=== PATIENT | female | born 1975 | race Caucasian/White ===

== ENCOUNTER 2016-07-09 20:50 | Emergency (ER) | payer BC ==
--- NOTE | 2016-07-09 20:55 | PDOC ---
History of Present Illness - History of Present Illness Initial Comments: 07/09/16 21:10 The patient is a 41 year old female with no significant past medical history who presents to the Emergency Department with right ankle pain for about 2 hours. Patient states she was walking and rolled her ankle. She reports pain and swelling at the site. She denies any other complaints. PAST MEDICAL HISTORY: no significant history PAST SURGICAL HISTORY: no significant history FAMILY HISTORY: no pertinent history SOCIAL HISTORY: Pt lives with family and is employed. MEDICATIONS: reviewed ALLERGIES: As per nursing notes Review of Systems: General: No fevers or chills, no weakness, no weight loss HEENT: No change in vision. No sore throat,. No ear pain CardioVascular: No chest pain or shortness of breath Respiratory: No cough, or wheezing. Gastrointestinal: no nausea, vomiting, diarrhea or constipation, No rectal bleeding Genitourinary: No dysuria, hematuria, or frequency Musculoskeletal: + right ankle injury. Neurologic: No headache, vertigo, dizziness or loss of consciousness Psychiatric: No depression Skin: No rashes or easy bruising Endocrine: No increased thirst or abnormal weight change Allergic: No skin or latex allergy All other systems reviewed and normal BASIC EXAM: GENERAL: The patient is awake, alert, and fully oriented, in no acute distress. HEAD: Normal with no signs of trauma. EYES: Pupils equal, round and reactive to light, extraocular movements intact, sclera anicteric, conjunctiva clear. EXTREMITIES: Tenderness on palpation to lateral malleolus with swelling over area. No tenderness on palpation at the base of the fifth metatarsal. Neurovascular distal intact.Normal range of motion. NEUROLOGICAL: Normal speech, normal gait. PSYCH: Normal mood, normal affect. SKIN: Warm, Dry, normal turgor, no rashes or lesions noted. <Ana M Feliciano - Last Filed: 07/09/16 21:09> - General History Source: Patient Exam Limitations: No Limitations - History of Present Illness Initial Comments: 07/09/16 21:57 A portion of this note was documented by scribe services under my direction. I have reviewed the details of the note, within reason, and agree with the documentation. The case summary and management plan written by me. Right ankle x-ray fracture lateral malleolus nondisplaced mortise appears to be intact. Procedure: OCL posterior splint applied to right ankle neurovascular post splint application intact Assessment and plan: This is a 41-year-old female who twisted her right ankle. Patient denied any other injuries. Patient has a chip fracture of the lateral malleolus that is nondisplaced. Patient ankle was splinted she was given crutches and orthopedic referral. 07/09/16 22:01 <Joelle Alvarez I - Last Filed: 07/09/16 22:01> - General Chief Complaint: Injury Stated Complaint: INJURY TO RIGHT ANKLE Time Seen by Provider: 07/09/16 20:53 Past History <Ana M Feliciano - Last Filed: 07/09/16 21:09> <Joelle Alvarez I - Last Filed: 07/09/16 22:01> - Past Medical History Allergies/Adverse Reactions: Allergies Allergy/AdvReac Type Severity Reaction Status Date / Time pineapple Allergy Verified 07/09/16 20:51 shellfish derived Allergy Verified 07/09/16 20:51 Home Medications: Ambulatory Orders NK [No Known Home Medication] 07/09/16 *Physical Exam - Vital Signs Last Vital Signs Temp Pulse Resp BP Pulse Ox 98.2 F 98 H 16 133/101 98 07/09/16 20:50 07/09/16 20:50 07/09/16 20:50 07/09/16 20:50 07/09/16 20:50 <AnaM Feliciano - Last Filed: 07/09/16 21:09> *DC/Admit/Observation/Transfer - Attestations Scribe Attestion: 07/09/16 21:10 Documentation prepared by Ana M Feliciano, acting as medical data entry clerk for Joelle Alvarez MD. <Ana M Feliciano - Last Filed: 07/09/16 21:09> - Discharge Dispostion Admit: No <Joelle Alvarez I - Last Filed: 07/09/16 22:01> Diagnosis at time of Disposition: Closed fracture of right ankle Qualifiers: Encounter type: initial encounter Qualified Code(s): S82.891A - Other fracture of right lower leg, initial encounter for closed fracture - Discharge Dispostion Disposition: HOME Condition at time of disposition: Stable - Patient Instructions Printed Discharge Instructions: DI for Ankle Fracture Additional Instructions: Tylenol or Motrin as needed for pain. No weightbearing use crutches for walking Leave splint in place until you see an orthopedist Follow-up with an orthopedist if you need an orthopedist call Dr. Whitney at [phone] in the morning for an appointment. Return to the emergency department immediately with ANY new, persistent or worsening symptoms. Continue any medications as previously prescribed by your physician. You should follow up with your primary doctor as soon as possible regarding today's emergency department visit. . Please make sure your doctor reviews the results of your emergency evaluation. Thank you for coming to the Emergency Department today for your care. It was a pleasure to see you today. Please note that your evaluation is INCOMPLETE until you follow-up with your doctor.
[2016-07-09] MEDS ORDERED: IBUPROFEN 600 MG TABLET (FP) PO ONE (21:01)
[2016-07-09 21:07] VITALS: BP 133/101; PULSE 98; TEMP 98.2; BMI 21.9
== END 2016-07-09 22:15 | disposition home or self-care (01) ==
LOC: FER 20:50
PROC: 2W3SX1Z Immobilization of Right Foot using Splint (ICD-10-PCS; principal; 2016-07-09)
DX: S82.891A Other fracture of right lower leg, initial encounter for closed fracture (principal); X58.XXXA Exposure to other specified factors, initial encounter; Y93.9 Activity, unspecified; Y92.9 Unspecified place or not applicable
CPT/HCPCS: 73610-TC-RT; 84703; 99281-25

== ENCOUNTER 2018-10-31 11:35 | Emergency (ER) | payer BC ==
[2018-10-31 12:03] VITALS: BP 128/79; PULSE 72; TEMP 98.8; BMI 21.6
--- NOTE | 2018-10-31 12:26 | PDOC ---
Attending Attestation - Resident Resident Name: Aliyah Correa - ED Attending Attestation I have performed the following: I have examined & evaluated the patient, The case was reviewed & discussed with the resident, I agree w/resident's findings & plan, Exceptions are as noted - HPI HPI: 10/31/18 13:37 Twisted right ankle. Pain and swelling laterally. Prior fracture 2 years ago. No hardware - Physicial Exam PE: 10/31/18 13:37 Right ankle: Mild swelling of the anterolateral ligaments. Mild point tenderness lateral malleolus. No fifth metatarsal tenderness. Pulses full. No distal sensory deficits. No other injuries - Medical Decision Making 10/31/18 13:38 Assessment: Ankle sprain, rule out fracture Plan: X-ray shows an avulsion fracture of the tip of the distal fibula, and it is uncertain whether this is new or old, since she has a history of a prior ankle fracture on this side. This is likely her old fracture, and I suspect of present injury is primarily a sprain. However, this was discussed with the patient and her mother. They were instructed to follow-up with their orthopedist Dr. Patel and copies of the x-ray were given. It was emphasized that this could be a new fracture in the area of her old injury, but it is much more likely that this is her old fracture, since the prior x-ray from 2017 shows similar injury. However, it is impossible to tell from the present x-ray whether the new fracture has been sustained. They agreed to follow-up with their orthopedist. An air cast was placed and the patient was adequately ambulatory at discharge to follow-up as directed
--- NOTE | 2018-10-31 12:31 | PDOC ---
History of Present Illness - General Chief Complaint: Injury Stated Complaint: RIGHT ANKLE INJURY Time Seen by Provider: 10/31/18 11:39 History Source: Patient Exam Limitations: No Limitations - History of Present Illness Initial Comments: 43 yo F PMH R ankle fracture 2 years ago, R knee surgery in past with screw in place, presenting with R ankle pain. Twisted her ankle at [facility] around 1100, states that she felt a pop and an audible sound. Has been able to walk on it, albeit with pain. Has been icing since the injury. Has no further complaints. LMP October 18-, denies . 10/31/18 12:27 Past History - Past Medical History Allergies/Adverse Reactions: Allergies Allergy/AdvReac Type Severity Reaction Status Date / Time pineapple Allergy Verified 10/31/18 11:41 shellfish derived Allergy Verified 10/31/18 11:41 Home Medications: Ambulatory Orders NK [No Known Home Medication] 10/31/18 COPD: No Other medical history: migraine headaches - Suicide/Smoking/Psychosocial Hx Smoking History: Current every day smoker Have you smoked in the past 12 months: Yes Number of Cigarettes Smoked Daily: 6 Information on smoking cessation initiated: Yes 'Breaking Loose' booklet given: 07/09/16 Hx Alcohol Use: No Drug/Substance Use Hx: No Substance Use Type: None Review of Systems - Review of Systems Able to Perform ROS?: Yes Constitutional: No: Chills, Weakness HEENTM: No: Double Vision, Hearing Loss, Difficulty Swallowing Respiratory: No: Cough, Shortness of Breath Cardiac (ROS): No: Chest Pain ABD/GI: No: Constipated, Diarrhea, Nausea, Vomiting *Physical Exam - Vital Signs Last Vital Signs Temp Pulse Resp BP Pulse Ox 98.8 F 72 18 128/79 98 10/31/18 11:35 10/31/18 11:35 10/31/18 11:35 10/31/18 11:35 10/31/18 11:35 - Physical Exam Comments: Gen: appropriately dressed, nourished, NAD CV: regular rate and rhythm Pulm: CTA b/l Abdomen: soft, non-distended, non-tender Extr: swelling around R lateral malleolus, tender to palpation along posterior border. No fifth metatarsal tenderness 10/31/18 12:29 ED Treatment Course - RADIOLOGY Radiology Studies Ordered: Category Date Time Status ANKLE-RIGHT [RAD] Stat Radiology 10/31/18 12:26 Ordered Medical Decision Making - Medical Decision Making Cannot rule out ankle fracture by Robinson criteria. Will get ankle X-ray 10/31/18 12:31 Ankle X rays reviewed. Evidence of old avulsions or accessory ossicles by the inferior tips of the medial and lateral malleolus. Minimal lateral swelling, no acute fracture. 10/31/18 13:20 *DC/Admit/Observation/Transfer Diagnosis at time of Disposition: Ankle pain, right - Discharge Dispostion Disposition: HOME Condition at time of disposition: Improved Decision to Admit order: No - Referrals - Patient Instructions Printed Discharge Instructions: DI for Ankle Sprain Additional Instructions: You were seen with right ankle pain. X-rays show that this is likely to be an ankle sprain. Please continue to use RICE therapy (rest, ice, compression, and elevation). See your orthopedist Dr. Patel within the next few days. Take an NSAID as needed for pain. - Post Discharge Activity Forms/Work/School Notes: Back to Work
== END 2018-10-31 13:57 | disposition home or self-care (01) ==
LOC: FER 11:35
DX: M25.571 Pain in right ankle and joints of right foot (principal); F17.210 Nicotine dependence, cigarettes, uncomplicated; X58.XXXA Exposure to other specified factors, initial encounter; Y93.75 Activity, martial arts; Y92.89 Other specified places as the place of occurrence of the external cause
CPT/HCPCS: 73610-TC-RT-FY; 99282-25

== ENCOUNTER 2018-12-19 23:09 | Inpatient (IN) | payer BC ==
[2018-12-20] MEDS ORDERED: SODIUM CHLORIDE 1,000 ML IV STA (00:09)
[2018-12-20] MEDS ORDERED: ACETAMINOPHEN 1000 MG/100 ML VIAL (NON FORMULARY) IVPB ONE (00:09)
[2018-12-20] MEDS ORDERED: ACETAMINOPHEN INJECTION 100 ML IVPB ONE ×2 (00:14→13:14)
[2018-12-20 00:21] LABS: BASO % 1.1 % (0-2.0); EOS % 0.2 % (0-4.5); HEMATOCRIT 44.2 % (32.4-45.2); HEMOGLOBIN 14.6 GM/dL (10.7-15.3); LYMPH % 13.4 % (8-40); MCH 30.1 pg (25.7-33.7); MCHC 33.1 g/dl (32.0-36.0); MEAN CELL VOLUME 91.1 fl (80-96); MEAN PLT VOLUME 8.2 fl (7.5-11.1); MONO % 9.8 % (3.8-10.2); NEUT % 75.5 % (42.8-82.8); PLATELET COUNT 392 K/MM3 (134-434); RBC 4.86 M/mm3 (3.60-5.2); WHITE BLOOD COUNT 15.7 K/mm3 (4.0-10.0)
--- NOTE | 2018-12-20 00:25 | PDOC ---
History of Present Illness - General Chief Complaint: Pain Stated Complaint: ABD PAIN Time Seen by Provider: 12/19/18 23:58 History Source: Patient Exam Limitations: No Limitations - History of Present Illness Initial Comments: 12/20/18 00:35 43 yo F with a hx of nephrolithiasis and right ankle fracture presents to the emergency department with right flank pain that began this morning. Per the patient, she states the pain is similar in quality to her previous episode 5 years ago. The pain was sudden onset, radiating to the right lower groin, 10/10 in severity, with partial relief with a muscle relaxant. Denies the following: dysuria, fevers, chills, nausea, vomiting, abdominal pain, chest pain, SOB, leg pain/swelling, diarrhea, constipation, hematochezia, and melena. LMP 2 weeks ago. Denies vaginal bleeding and discharge but endorses hematuria. Allergies: IV contrast Past History - Past Medical History Allergies/Adverse Reactions: Allergies Allergy/AdvReac Type Severity Reaction Status Date / Time iodine Allergy Verified 12/20/18 10:47 pineapple Allergy Verified 12/20/18 10:47 shellfish derived Allergy Verified 12/20/18 10:47 Home Medications: Ambulatory Orders Diphenhydramine HCl [Benadryl -] 25 mg PO HS PRN 12/20/18 COPD: No - Suicide/Smoking/Psychosocial Hx Smoking History: Unknown if ever smoked Have you smoked in the past 12 months: No Number of Cigarettes Smoked Daily: 6 Information on smoking cessation initiated: No 'Breaking Loose' booklet given: 10/31/18 Hx Alcohol Use: No Drug/Substance Use Hx: No Substance Use Type: None Review of Systems - Review of Systems Able to Perform ROS?: Yes Is the patient limited Croatian proficient: No Constitutional: No: Chills, Diaphoresis, Fever, Weakness HEENTM: No: Eye Pain, Ear Pain, Nose Pain, Throat Pain, Mouth Pain Respiratory: No: Cough, Shortness of Breath, Hemoptysis Cardiac (ROS): No: Chest Pain, Lightheadedness, Palpitations, Syncope, Chest Tightness ABD/GI: No: Constipated, Diarrhea, Nausea, Rectal Bleeding, Vomiting, Tarry Stools : Yes: Hematuria. No: Burning, Dysuria Musculoskeletal: No: Back Pain, Joint Pain, Neck Pain Integumentary: No: Bruising, Erythema, Rash Neurological: No: Headache, Numbness, Tingling, Tremors Psychiatric: No: Change in Appetite Endocrine: No: Unexplained Weight Gain Hematologic/Lymphatic: No: Anemia *Physical Exam - Vital Signs Last Vital Signs Temp Pulse Resp BP Pulse Ox 98.1 F 127 H 20 148/94 97 12/19/18 23:30 12/19/18 23:30 12/19/18 23:30 12/19/18 23:30 12/19/18 23:30 - Physical Exam General Appearance: Yes: Nourished, Appropriately Dressed. No: Apparent Distress, Intoxicated HEENT: positive: EOMI, DANIA, Normal Voice, Symmetrical, Pharynx Normal, Hearing Grossly Normal. negative: Pale Conjunctivae, Scleral Icterus (R), Scleral Icterus (L), Muffled/Hoarse voice, Excessive drooling Neck: positive: Trachea midline, Supple. negative: Tender, Lymphadenopathy (R) , Lymphadenopathy (L), Tender lateral, Tender midline Respiratory/Chest: positive: Lungs Clear, Normal Breath Sounds. negative: Chest Tender, Respiratory Distress, Accessory Muscle Use, Crackles, Rales, Rhonchi, Stridor, Wheezing Cardiovascular: positive: Regular Rhythm, Regular Rate, S1, S2. negative: Systolic Murmur Gastrointestinal/Abdominal: positive: Normal Bowel Sounds, Tender (right flank) , Flat, Soft. negative: Distended Lymphatic: negative: Adenopathy Musculoskeletal: positive: Normal Inspection, CVA Tenderness (R). negative: CVA Tenderness (L), Vertebral Tenderness Extremity: positive: Normal Capillary Refill, Normal Inspection, Normal Range of Motion. negative: Tender, Swelling, Calf Tenderness Integumentary: positive: Normal Color, Dry, Warm. 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 Initial vitals: Initial Vital Signs Temp Pulse Resp BP Pulse Ox 98.1 F 127 H 20 148/94 97 12/19/18 23:30 12/19/18 23:30 12/19/18 23:30 12/19/18 23:30 12/19/18 23:30 Work up: ddx: nephrolithiasis vs UTI vs pyelonephritis Laboratory Tests 12/20/18 12/20/18 12/20/18 00:10 00:10 00:10 WBC 15.7 H RBC 4.86 Hgb 14.6 Hct 44.2 MCV 91.1 MCH 30.1 MCHC 33.1 RDW 13.0 Plt Count 392 MPV 8.2 Absolute Neuts (auto) 11.9 H Neutrophils % 75.5 Lymphocytes % 13.4 Monocytes % 9.8 Eosinophils % 0.2 Basophils % 1.1 Nucleated RBC % 0 Sodium 137 Potassium 3.8 Chloride 105 Carbon Dioxide 19 L Anion Gap 13 BUN 10.9 Creatinine 0.9 Est GFR (CKD-EPI)AfAm 91.40 Est GFR (CKD-EPI)NonAf 78.86 Random Glucose 92 Calcium 10.2 H Total Bilirubin 0.6 AST 11 L ALT 14 Alkaline Phosphatase 109 Total Protein 8.2 Albumin 4.4 Serum , Qual Negative leukocytosis noted. no PEYTON. UA is pending. Patient has pending CT abdomen and pelvis. Patient was signed out to night team *DC/Admit/Observation/Transfer Diagnosis at time of Disposition: Right flank pain - Discharge Dispostion Decision to Admit order: No - Referrals - Patient Instructions - Post Discharge Activity
--- NOTE | 2018-12-20 00:27 | PDOC ---
Attending Attestation - Resident Resident Name: GeovaniSamuel - ED Attending Attestation I have performed the following: I have examined & evaluated the patient, The case was reviewed & discussed with the resident, I agree w/resident's findings & plan, Exceptions are as noted - HPI HPI: 12/20/18 00:24 this 43 yo female p/w flank pain that started this morning. HPI she noted some blood in her urine,had some difficulty urinating ,+nausea and rt flank pain starting this morning - Physicial Exam PE: 12/20/18 00:27 43 yo female p/w rt flank pain,nausea and hematuria head ncat lungs cta b/l cvs tachycardia abdominal exam no rebound, pain in lower rt quadrant rt flank pain radiating to RLQ neuro axox3 - Medical Decision Making 12/20/18 00:29 pmh kidney stones and recent rt ankle fracture LMP 12/10/18 concern for nephrolithiasis ,atypical appendicitis ,musculoskelatal strain , pyelonephritis pain meds,IVfluids,anti emetics,ct scan ,preg test ,urine, ct scan 12/20/18 01:35
[2018-12-20 00:46] LABS: ALBUMIN 4.4 g/dl (3.4-5.0); BILIRUBIN,TOTAL 0.6 mg/dL (0.2-1); BLOOD UREA NITROGEN 10.9 mg/dL (7-18); CALCIUM 10.2 mg/dL (8.5-10.1); CREATININE 0.9 mg/dL (0.55-1.3); POTASSIUM 3.8 mmol/L (3.5-5.1); TOT PROT 8.2 g/dl (6.4-8.2)
--- NOTE | 2018-12-20 02:02 | PDOC ---
*Physical Exam - Vital Signs Last Vital Signs Temp Pulse Resp BP Pulse Ox 98.1 F 127 H 20 148/94 97 12/19/18 23:30 12/19/18 23:30 12/19/18 23:30 12/19/18 23:30 12/19/18 23:30 <Lisbeth Serna - Last Filed: 12/20/18 03:14> - Vital Signs Last Vital Signs Temp Pulse Resp BP Pulse Ox 98.1 F 127 H 20 148/94 97 12/19/18 23:30 12/19/18 23:30 12/19/18 23:30 12/19/18 23:30 12/19/18 23:30 <Elizabeth Shannon - Last Filed: 12/20/18 03:23> ED Treatment Course - LABORATORY CBC & Chemistry Diagram: 12/20/18 00:10 12/20/18 00:10 - ADDITIONAL ORDERS Additional order review: Laboratory Results 12/20/18 12/20/18 12/20/18 02:14 00:10 00:10 Sodium 137 Potassium 3.8 Chloride 105 Carbon Dioxide 19 L Anion Gap 13 BUN 10.9 Creatinine 0.9 Est GFR (CKD-EPI)AfAm 91.40 Est GFR (CKD-EPI)NonAf 78.86 Random Glucose 92 Calcium 10.2 H Total Bilirubin 0.6 AST 11 L ALT 14 Alkaline Phosphatase 109 Total Protein 8.2 Albumin 4.4 Serum , Qual Negative Urine Color Dk yellow Urine Appearance Cloudy Urine pH 6.0 Ur Specific [place] 1.014 Urine Protein Negative Urine Glucose (UA) Negative Urine Ketones 3+ H Urine Blood 1+ H Urine Nitrite Positive H Urine Bilirubin 1+ H Urine Urobilinogen 1.0 Ur Leukocyte Esterase Negative Urine WBC (Auto) 3 Urine RBC (Auto) 7 Urine Casts (Auto) 4 U Epithel Cells (Auto) 4.7 Urine Bacteria (Auto) 147.5 12/20/18 00:10 RBC 4.86 MCV 91.1 MCHC 33.1 RDW 13.0 MPV 8.2 Neutrophils % 75.5 Lymphocytes % 13.4 Monocytes % 9.8 Eosinophils % 0.2 Basophils % 1.1 - Medications Given in the ED: ED Medications Discontinued Medications Generic Name Dose Route Start Last Admin Trade Name Freq PRN Reason Stop Dose Admin Acetaminophen 1,000 mg 12/20/18 00:09 12/20/18 00:25 Ofirmev Injection - IVPB 12/20/18 00:10 1,000 mg ONCE ONE Administration Sodium Chloride 1,000 mls @ 1,000 mls/hr 12/20/18 00:09 12/20/18 00:24 Normal Saline - IV 12/20/18 01:08 1,000 mls/hr ASDIR STA Administration <Lisbeth Serna - Last Filed: 12/20/18 03:14> - LABORATORY CBC & Chemistry Diagram: 12/20/18 00:10 12/20/18 00:10 - ADDITIONAL ORDERS Additional order review: Laboratory Results 12/20/18 12/20/18 00:10 00:10 Sodium 137 Potassium 3.8 Chloride 105 Carbon Dioxide 19 L Anion Gap 13 BUN 10.9 Creatinine 0.9 Est GFR (CKD-EPI)AfAm 91.40 Est GFR (CKD-EPI)NonAf 78.86 Random Glucose 92 Calcium 10.2 H Total Bilirubin 0.6 AST 11 L ALT 14 Alkaline Phosphatase 109 Total Protein 8.2 Albumin 4.4 Serum , Qual Negative 12/20/18 00:10 RBC 4.86 MCV 91.1 MCHC 33.1 RDW 13.0 MPV 8.2 Neutrophils % 75.5 Lymphocytes % 13.4 Monocytes % 9.8 Eosinophils % 0.2 Basophils % 1.1 - Medications Given in the ED: ED Medications Discontinued Medications Generic Name Dose Route Start Last Admin Trade Name Freq PRN Reason Stop Dose Admin Acetaminophen 1,000 mg 12/20/18 00:09 12/20/18 00:25 Ofirmev Injection - IVPB 12/20/18 00:10 1,000 mg ONCE ONE Administration Sodium Chloride 1,000 mls @ 1,000 mls/hr 12/20/18 00:09 12/20/18 00:24 Normal Saline - IV 12/20/18 01:08 1,000 mls/hr ASDIR STA Administration <Elizabeth Shannon - Last Filed: 12/20/18 03:23> Medical Decision Making - Medical Decision Making 12/20/18 02:38 43 y/o F presenting with right flank pain was tachycardic on arrival. Labs: increased leukoctyes, and negative serym CT abdomen and pelvis showed stone in UVJ and minimal bilateral hydronephrosis UA pending 12/20/18 03:14 negative leukocyte esterase positive nitrites and blood. <Lisbeth Serna - Last Filed: 12/20/18 03:14> - Medical Decision Making 12/20/18 02:[address] scan for right renal stone r/o 12/20/18 02:19 Patient Name: TONYA MONTAÑO THIS IS A PRELIMINARY REPORT FROM [facility] DATE OF SERVICE: 2018-12-20 01:46:36 IMAGES: [id number] EXAM: CT ABDOMEN AND PELVIS WITHOUT CONTRAST 4 mm stone distal right ureter just above UVJ. Minimal bilateral hydronephrosis. Punctate stone right kidney. Left renal cyst Unremarkable pancreas and gallbladder. No bowel obstruction, colitis, free fluid or free air. Appendix not seen. Small umbilical hernia containing fat Incidental bone islands pelvis 12/20/18 02:19 Pt needs a UA; she has a +WBC and a 4mm right ureteral stone with bilat hydro. 12/20/18 03:22 Pt has a nitrite positive UTI and she will be admitted for a complicated UTI. <Elizabeth Shannon - Last Filed: 12/20/18 03:23> *DC/Admit/Observation/Transfer <Lisbeth Serna - Last Filed: 12/20/18 03:14> <Elizabeth Shannon - Last Filed: 12/20/18 03:23> Diagnosis at time of Disposition: Right flank pain - Discharge Dispostion Disposition: HOME
[2018-12-20 02:33] LABS: EPI CELLS 4.7 /HPF (0-5/HPF); HYALINE CASTS 4 /lpf (0-8); URINE APPEARANCE CLOUDY; URINE BACTERIA 147.5 /hpf (NEGATIVE); URINE BILIRUBIN 1+ (NEGATIVE); URINE COLOR DK YELLOW; URINE GLUCOSE (UA) NEGATIVE (NEGATIVE); URINE KETONE 3+ (NEGATIVE); URINE LEUK ESTERASE NEGATIVE (NEGATIVE); URINE NITRITE POSITIVE (NEGATIVE); URINE PROTEIN NEGATIVE (NEGATIVE); URINE RBC 7 /hpf (0-4); URINE WBC 3 /hpf (0-5)
[2018-12-20] MEDS ORDERED: CEFTRIAXONE 1 GM in DEXTROSE 5%-WATER - 50 ML IVPB ONE (03:23)
--- NOTE | 2018-12-20 03:28 | PDOC ---
*Physical Exam - Vital Signs Last Vital Signs Temp Pulse Resp BP Pulse Ox 98.1 F 127 H 20 148/94 97 12/19/18 23:30 12/19/18 23:30 12/19/18 23:30 12/19/18 23:30 12/19/18 23:30 ED Treatment Course - LABORATORY CBC & Chemistry Diagram: 12/20/18 00:10 12/20/18 00:10 - ADDITIONAL ORDERS Additional order review: Laboratory Results 12/20/18 12/20/18 12/20/18 02:14 00:10 00:10 Sodium 137 Potassium 3.8 Chloride 105 Carbon Dioxide 19 L Anion Gap 13 BUN 10.9 Creatinine 0.9 Est GFR (CKD-EPI)AfAm 91.40 Est GFR (CKD-EPI)NonAf 78.86 Random Glucose 92 Calcium 10.2 H Total Bilirubin 0.6 AST 11 L ALT 14 Alkaline Phosphatase 109 Total Protein 8.2 Albumin 4.4 Serum , Qual Negative Urine Color Dk yellow Urine Appearance Cloudy Urine pH 6.0 Ur Specific [place] 1.014 Urine Protein Negative Urine Glucose (UA) Negative Urine Ketones 3+ H Urine Blood 1+ H Urine Nitrite Positive H Urine Bilirubin 1+ H Urine Urobilinogen 1.0 Ur Leukocyte Esterase Negative Urine WBC (Auto) 3 Urine RBC (Auto) 7 Urine Casts (Auto) 4 U Epithel Cells (Auto) 4.7 Urine Bacteria (Auto) 147.5 12/20/18 00:10 RBC 4.86 MCV 91.1 MCHC 33.1 RDW 13.0 MPV 8.2 Neutrophils % 75.5 Lymphocytes % 13.4 Monocytes % 9.8 Eosinophils % 0.2 Basophils % 1.1 - Medications Given in the ED: ED Medications Discontinued Medications Generic Name Dose Route Start Last Admin Trade Name Freq PRN Reason Stop Dose Admin Acetaminophen 1,000 mg 12/20/18 00:09 12/20/18 00:25 Ofirmev Injection - IVPB 12/20/18 00:10 1,000 mg ONCE ONE Administration Sodium Chloride 1,000 mls @ 1,000 mls/hr 12/20/18 00:09 12/20/18 00:24 Normal Saline - IV 12/20/18 01:08 1,000 mls/hr ASDIR STA Administration Medical Decision Making - Medical Decision Making 12/20/18 03:27 43 y/o F presenting with right flank pain was tachycardic on arrival. Labs: increased leukoctyes, and negative serym CT abdomen and pelvis showed stone in UVJ and minimal bilateral hydronephrosis UA pending 12/20/18 03:14 CT abdomen and pelvis CT ABDOMEN AND PELVIS WITHOUT CONTRAST 4 mm stone distal right ureter just above UVJ. Minimal bilateral hydronephrosis. Punctate stone right kidney. Left renal cyst Unremarkable pancreas and gallbladder. No bowel obstruction, colitis, free fluid or free air. Appendix not seen. Small umbilical hernia containing fat Incidental bone islands pelvis negative leukocyte esterase positive nitrites and blood. microblogged to admitting team for admission. 12/20/18 03:28 12/20/18 03:[address] Nance' service *DC/Admit/Observation/Transfer Diagnosis at time of Disposition: Right flank pain - Discharge Dispostion Disposition: HOME - Referrals - Patient Instructions - Post Discharge Activity
[2018-12-20] MEDS ORDERED: CEFTRIAXONE 1 GM/50 ML BAG ONE ×2 (03:43→09:21)
[2018-12-20] MEDS ORDERED: KETOROLAC TROMETHAMINE 15 MG/ML VIAL IVPUSH PRN (04:07)
[2018-12-20] MEDS ORDERED: SODIUM CHLORIDE 1,000 ML IV SCH (04:15)
--- NOTE | 2018-12-20 04:33 | HP ---
CHIEF COMPLAINT: R flank pain PCP: None HISTORY OF PRESENT ILLNESS: 43 y/o F with PMH of kidney stones 5 years ago presented to ED because of R sided flank pain since morning. Pt described the pain as sharp, constant radiating to suprapubic region. Pt says that nothing makes the pain better or worse. Pain is associated with nausea and CVA tenderness but no vomiting and also with difficulty urinating (dribbles) but no fever, chills, dysuria, urgency.Pain is currently at 5-6/10 but was 8/10 on initial presentation.A friend gave the patient muscle relaxant which helped the pain temporarily.Pt doesnt know the type of stone she had 5 years ago but does recall that it didnt require any intervention at the time. ER course was notable for: (1)U/A which is negative with pending urine culture (2) NS, CT A/P showing 4 mm stone with mild b/l hydronephrosis (3) 1gm ceftriaxone, NS bolus, tylenol, ketorolac Recent Travel: none PAST MEDICAL HISTORY:None PAST SURGICAL HISTORY: Breast augmentation, knee surgery s/p trauma Social History: Smokin pack every 2-3 days Alcohol: social Drugs: none Allergies pineapple Allergy (Verified 10/31/18 11:41) shellfish derived Allergy (Verified 10/31/18 11:41) HOME MEDICATIONS: Home Medications Medication Instructions Recorded NK [No Known Home Medication] 10/31/18 REVIEW OF SYSTEMS CONSTITUTIONAL: Absent: fever, chills, diaphoresis, generalized weakness, malaise, loss of appetite, weight change HEENT: Absent: rhinorrhea, nasal congestion, throat pain, throat swelling, difficulty swallowing, mouth swelling, ear pain, eye pain, visual changes CARDIOVASCULAR: Absent: chest pain, syncope, palpitations, irregular heart rate, lightheadedness , peripheral edema RESPIRATORY: Absent: cough, shortness of breath, dyspnea with exertion, orthopnea, wheezing, stridor, hemoptysis GASTROINTESTINAL: Absent: abdominal pain, abdominal distension, nausea, vomiting, diarrhea, constipation, melena, hematochezia GENITOURINARY: flank pain Absent: dysuria, frequency, urgency, hesitancy, hematuria, , genital pain MUSCULOSKELETAL: Absent: myalgia, arthralgia, joint swelling, back pain, neck pain SKIN: Absent: rash, itching, pallor HEMATOLOGIC/IMMUNOLOGIC: Absent: easy bleeding, easy bruising, lymphadenopathy, frequent infections ENDOCRINE: Absent: unexplained weight gain, unexplained weight loss, heat intolerance, cold intolerance NEUROLOGIC: Absent: headache, focal weakness or paresthesias, dizziness, unsteady gait, seizure, mental status changes, bladder or bowel incontinence PSYCHIATRIC: Absent: anxiety, depression, suicidal or homicidal ideation, hallucinations. PHYSICAL EXAMINATION Vital Signs - 24 hr 12/19/18 23:30 Temperature 98.1 F Pulse Rate 127 H Respiratory 20 Rate Blood Pressure 148/94 O2 Sat by Pulse 97 Oximetry (%) GENERAL: Awake, alert, and fully oriented, in no acute distress. HEAD: Normal with no signs of trauma. LUNGS: Breath sounds equal, clear to auscultation bilaterally. No wheezes, and no crackles. No accessory muscle use. HEART: Regular rate and rhythm, normal S1 and S2 without murmur, rub or gallop. ABDOMEN: Soft, Suprapubic tenderness, not distended, normoactive bowel sounds, no guarding, no rebound, no masses. No hepatomegaly or splenomegaly. MUSCULOSKELETAL: Normal range of motion at all joints. No bony deformities or tenderness. R&L CVA tenderness. UPPER EXTREMITIES: 2+ pulses, warm, well-perfused. No cyanosis. No clubbing. No peripheral edema. LOWER EXTREMITIES: 2+ pulses, warm, well-perfused. No calf tenderness. No peripheral edema. SKIN: Warm, dry, normal turgor, no rashes or lesions noted, normal capillary refill. Laboratory Results - last 24 hr 12/20/18 12/20/18 12/20/18 00:10 00:10 00:10 WBC 15.7 H RBC 4.86 Hgb 14.6 Hct 44.2 MCV 91.1 MCH 30.1 MCHC 33.1 RDW 13.0 Plt Count 392 MPV 8.2 Absolute Neuts (auto) 11.9 H Neutrophils % 75.5 Lymphocytes % 13.4 Monocytes % 9.8 Eosinophils % 0.2 Basophils % 1.1 Nucleated RBC % 0 Sodium 137 Potassium 3.8 Chloride 105 Carbon Dioxide 19 L Anion Gap 13 BUN 10.9 Creatinine 0.9 Est GFR (CKD-EPI)AfAm 91.40 Est GFR (CKD-EPI)NonAf 78.86 Random Glucose 92 Calcium 10.2 H Total Bilirubin 0.6 AST 11 L ALT 14 Alkaline Phosphatase 109 Total Protein 8.2 Albumin 4.4 Serum , Qual Negative Urine Color Urine Appearance Urine pH Ur Specific [place] Urine Protein Urine Glucose (UA) Urine Ketones Urine Blood Urine Nitrite Urine Bilirubin Urine Urobilinogen Ur Leukocyte Esterase Urine WBC (Auto) Urine RBC (Auto) Urine Casts (Auto) U Epithel Cells (Auto) Urine Bacteria (Auto) 12/20/18 02:14 WBC RBC Hgb Hct MCV MCH MCHC RDW Plt Count MPV Absolute Neuts (auto) Neutrophils % Lymphocytes % Monocytes % Eosinophils % Basophils % Nucleated RBC % Sodium Potassium Chloride Carbon Dioxide Anion Gap BUN Creatinine Est GFR (CKD-EPI)AfAm Est GFR (CKD-EPI)NonAf Random Glucose Calcium Total Bilirubin AST ALT Alkaline Phosphatase Total Protein Albumin Serum , Qual Urine Color Dk yellow Urine Appearance Cloudy Urine pH 6.0 Ur Specific [place] 1.014 Urine Protein Negative Urine Glucose (UA) Negative Urine Ketones 3+ H Urine Blood 1+ H Urine Nitrite Positive H Urine Bilirubin 1+ H Urine Urobilinogen 1.0 Ur Leukocyte Esterase Negative Urine WBC (Auto) 3 Urine RBC (Auto) 7 Urine Casts (Auto) 4 U Epithel Cells (Auto) 4.7 Urine Bacteria (Auto) 147.5 ASSESSMENT/PLAN: 43 y/o F with PMH of kidney stones 5 years ago presented to ED because of R sided flank pain since morning admitted for poss infected kidney stone R Flank pain most likely secondary to kidney stones as pt has prior history and based on current presentation NPO in case uro intervention NS @75 cont Ceftriaxone. WBC 15.7 flomax 0.4 mg PO daily Morphine 2 mg IVPUSH Q4h for pain control zofran 4mg for nausea Uro consult urine culture pending DVT PPX Hep SubQ Visit type - Emergency Visit Emergency Visit: Yes Care time: The patient presented to the Emergency Department on the above date and was hospitalized for further evaluation of their emergent condition. - New Patient This patient is new to me today: Yes Date on this admission: 12/20/18 - Critical Care Critical Care patient: No ATTENDING PHYSICIAN STATEMENT I saw and evaluated the patient. I reviewed the resident's note and discussed the case with the resident. I agree with the resident's findings and plan as documented. SUBJECTIVE: OBJECTIVE: ASSESSMENT AND PLAN:
--- NOTE | 2018-12-20 04:39 | PN ---
Teaching Attending Note Name of Resident: Pricila Katz ATTENDING PHYSICIAN STATEMENT I saw and evaluated the patient. I reviewed the resident's note and discussed the case with the resident. I agree with the resident's findings and plan as documented. SUBJECTIVE: 43yo woman, tobacco smoker w/ Hx of kidney stones c/o right sided flank pain since one day, sharp, severe pain. Reported about 3 episodes of nonbloody vomiting. Denied fevers or chills. OBJECTIVE: Last Vital Signs Temp Pulse Resp BP Pulse Ox 98.1 F 127 H 20 148/94 97 12/19/18 23:30 12/19/18 23:30 12/19/18 23:30 12/19/18 23:30 12/19/18 23:30 gen- nad cv-s1+s2+rrr chest clear back- b/l cva tenderness ext -no edema Abnormal Lab Results 12/20/18 12/20/18 12/20/18 00:10 00:10 02:14 WBC 15.7 H Absolute Neuts (auto) 11.9 H Carbon Dioxide 19 L Calcium 10.2 H AST 11 L Urine Ketones 3+ H Urine Blood 1+ H Urine Nitrite Positive H Urine Bilirubin 1+ H imaging studies reviewed ASSESSMENT AND PLAN: #4mm stone in distal right ureter just above UVJ. Minimal b/l nephrosis. Punctuate stone in right kidney. Left renal cyst. Left renal cyst. Cannot r/o b/ l pyelonephritis especially given leukocytosis. -med/surg -iv fluid hydration -morphine iv prn for pain control -zofran prn for pain -urology for stone extraction -urine culture -ceftriaxone -scds for dvt ppx
[2018-12-20] MEDS ORDERED: ONDANSETRON 4 MG/2 ML VIAL IVPUSH PRN (04:42)
[2018-12-20] MEDS ORDERED: MORPHINE SULFATE 2 MG/ML VIAL ONE ×3 (05:01→18:19)
[2018-12-20] MEDS: MORPHINE SULFATE 2 MG/ML VIAL IVPUSH PRN ×4 (05:13→23:42)
[2018-12-20] MEDS ORDERED: HEPARIN NA (PORCINE) 5,000 UNITS/ML 1ML VIAL SQ SCH (06:00)
[2018-12-20] MEDS ORDERED: HEPARIN NA (PORCINE) 5,000 UNITS/ML 1ML VIAL ONE (06:26)
[2018-12-20 06:34] LABS: BASO % 0.6 % (0-2.0); EOS % 0.4 % (0-4.5); HEMATOCRIT 36.2 % (32.4-45.2); HEMOGLOBIN 12.2 GM/dL (10.7-15.3); LYMPH % 12.6 % (8-40); MCH 30.7 pg (25.7-33.7); MCHC 33.7 g/dl (32.0-36.0); MEAN CELL VOLUME 91.3 fl (80-96); MONO % 9.9 % (3.8-10.2); NEUT % 76.5 % (42.8-82.8); PLATELET COUNT 307 K/MM3 (134-434); RBC 3.96 M/mm3 (3.60-5.2); RDW 13.6 % (11.6-15.6); WHITE BLOOD COUNT 10.8 K/mm3 (4.0-10.0)
[2018-12-20 07:07] LABS: ALBUMIN 3.4 g/dl (3.4-5.0); BILIRUBIN,TOTAL 0.4 mg/dL (0.2-1); BLOOD UREA NITROGEN 10.3 mg/dL (7-18); CALCIUM 8.6 mg/dL (8.5-10.1); CREATININE 0.6 mg/dL (0.55-1.3); MAGNESIUM 1.9 mg/dL (1.8-2.4); PHOSPHOROUS 3.2 mg/dL (2.5-4.9); POTASSIUM 4.3 mmol/L (3.5-5.1); TOT PROT 6.2 g/dl (6.4-8.2)
[2018-12-20] MEDS ORDERED: TAMSULOSIN HCL 0.4 MG CAP PO SCH ×2 (08:30→11:00)
[2018-12-20] MEDS ORDERED: TAMSULOSIN HCL 0.4 MG CAP ONE (08:56)
[2018-12-20] MEDS: CEFTRIAXONE 1 GM in DEXTROSE 5%-WATER - 50 ML IVPB SCH (10:00)
--- NOTE | 2018-12-20 11:03 | HOSP ---
Subjective - Review of Symptoms Events since last encounter: pt seen and examined. complains of pain in RLQ. and R flank. No N/V. hematuria this am. no fever but chills last night . labs and Ct reviewed. a/p 43 y/o lady with a h/o nephrolithiasis who presented with R flank pain. she was found to have obstructing R lower ureteral stone 1- Obstructing R lower ureteral stone , with hydronephrosis. has leukocytosis but no fever or pyuria. - will change IVF to D5NS and increase the rate - will send blood cx - follow urine cx. - increase flomax to 0.8 mg - cont ceftriaxone while she has the obstruction and waiting for urine cx - Dr. Darci gates, awaiting call back - add tylenol and toradol for pain 2- DVT Px: SCDS for now, pending any possible procedure 3- Nicotine dependence. counseled . add nicotine patch Physical Examination Vital Signs: Vital Signs Temperature 98.3 F 12/20/18 07:30 Pulse Rate 108 H 12/20/18 09:06 Respiratory Rate 20 12/20/18 09:06 Blood Pressure 139/93 12/20/18 09:06 O2 Sat by Pulse Oximetry (%) 99 12/20/18 09:06 Labs: CBC, BMP 12/20/18 06:15 12/20/18 06:00
[2018-12-20] MEDS: DEXTROSE 5%-NORMAL SALINE 1,000 ML IV SCH (11:07)
[2018-12-20] MEDS: NICOTINE 7 MG/24 HOURS TOPICAL PATCH TD SCH (12:15)
[2018-12-20] MEDS: ACETAMINOPHEN 1000 MG/100 ML VIAL (NON FORMULARY) IVPB PRN (13:24)
[2018-12-21 00:11] VITALS: BMI 21.7
[2018-12-21] MEDS: KETOROLAC TROMETHAMINE 30 MG/1 ML VIAL IVPUSH PRN ×3 (00:38→22:41)
[2018-12-21] MEDS: MORPHINE SULFATE 2 MG/ML VIAL IVPUSH PRN (06:44)
--- NOTE | 2018-12-21 07:08 | EKG ---
Test Reason : Blood Pressure : / mmHG Vent. Rate : 069 BPM Atrial Rate : 069 BPM P-R Int : 134 ms QRS Dur : 080 ms QT Int : 398 ms P-R-T Axes : 012 043 022 degrees QTc Int : 426 ms NORMAL SINUS RHYTHM NONSPECIFIC T WAVE ABNORMALITY ABNORMAL ECG NO PREVIOUS ECGS AVAILABLE Confirmed by HOLLY JEREZ, MAYELA ([id number]) on 12/21/2018 7:08:04 AM Referred By: Confirmed By:MAYELA BARRERA MD
[2018-12-21 07:47] LABS: BASO % 0.5 % (0-2.0); EOS % 1.4 % (0-4.5); HEMATOCRIT 32.8 % (32.4-45.2); LYMPH % 29.8 % (8-40); MCHC 33.6 g/dl (32.0-36.0); MEAN CELL VOLUME 92.2 fl (80-96); MEAN PLT VOLUME 8.4 fl (7.5-11.1); MONO % 11.5 % (3.8-10.2); NEUT % 56.8 % (42.8-82.8); PLATELET COUNT 281 K/MM3 (134-434); RBC 3.56 M/mm3 (3.60-5.2); RDW 13.5 % (11.6-15.6); WHITE BLOOD COUNT 8.7 K/mm3 (4.0-10.0)
[2018-12-21 07:59] LABS: INR 1.03 (0.83-1.09); PROTHROMBIN TIME (PATIENT) 12.1 SEC (9.7-13.0)
[2018-12-21 09:30] LABS: CALCIUM 8.3 mg/dL (8.5-10.1); CREATININE 0.6 mg/dL (0.55-1.3); MAGNESIUM 1.9 mg/dL (1.8-2.4); PHOSPHOROUS 2.7 mg/dL (2.5-4.9)
[2018-12-21] MEDS: NICOTINE 7 MG/24 HOURS TOPICAL PATCH TD SCH (09:57)
[2018-12-21 10:02] LABS: BLOOD UREA NITROGEN 7.2 mg/dL (7-18)
[2018-12-21] MEDS ORDERED: cefTRIAXone SODIUM 1 GM VIAL ONE (10:02)
[2018-12-21] MEDS ORDERED: DEXTROSE 5%-WATER - 50 ML IVPB ONE (10:03)
[2018-12-21] MEDS: CEFTRIAXONE 1 GM in DEXTROSE 5%-WATER - 50 ML IVPB SCH (10:06)
[2018-12-21] MEDS: ACETAMINOPHEN 1000 MG/100 ML VIAL (NON FORMULARY) IVPB PRN ×2 (10:07→19:15)
[2018-12-21] MEDS: DEXTROSE 5%-NORMAL SALINE 1,000 ML IV SCH ×2 (13:26→19:30)
--- NOTE | 2018-12-21 16:50 | PN ---
Teaching Attending Note Name of Resident: Pricila Katz ATTENDING PHYSICIAN STATEMENT I saw and evaluated the patient. I reviewed the resident's note and discussed the case with the resident. I agree with the resident's findings and plan as documented. patient and family fired MD, and refused the encounter ASSESSMENT AND PLAN: 43 y/o lady with a h/o nephrolithiasis who presented with R flank pain. she was found to have obstructing R lower ureteral stone 1- Obstructing R lower ureteral stone , with hydronephrosis. - Cont IVF - for a procedure with dr. Masterson today - urine cx with GNR. cont ceftriaxone ( day 2) until ID and sensitivity is back - duration of treatment is going to be a total of 10 days . will count ceftriaxone days if bacteria is sensitive to it - cont flomax to 0.8 mg - pain control with toradol and tylenol . Toradol for max of days 2- DVT Px: SCDS for now as she has a procedure 3- Nicotine dependence. cont patch Will transfer care to [facility]FF [facility]ET[facility] COUNSELOR service.
[2018-12-21] MEDS ORDERED: PROPOFOL 20 ML ONE (17:00)
[2018-12-21] MEDS ORDERED: MIDAZOLAM HCL 2 MG/2 ML SINGLE DOSE VIAL ONE (17:00)
--- NOTE | 2018-12-21 17:43 | PN ---
Physical Exam: SUBJECTIVE: Patient seen and examined.Pt was complaining of feeling fatigue. slightly anxious about procedure OBJECTIVE: Vital Signs Period Temp Pulse Resp BP Sys/[place] Pulse Ox Last 24 Hr 98.1 F-99.3 F 76-109 18-20 123-151/66-89 98-98 GENERAL: Awake, alert, and fully oriented, in mild distress. HEAD: Normal with no signs of trauma. LUNGS: Breath sounds equal, clear to auscultation bilaterally. No wheezes, and no crackles. No accessory muscle use. HEART: Regular rate and rhythm, normal S1 and S2 without murmur, rub or gallop. ABDOMEN: Soft, Suprapubic tenderness, not distended, normoactive bowel sounds, no guarding, no rebound, no masses. No hepatomegaly or splenomegaly. CVA tenderness b/l MUSCULOSKELETAL: Normal range of motion at all joints. No bony deformities or tenderness. R&L CVA tenderness. UPPER EXTREMITIES: 2+ pulses, warm, well-perfused. No cyanosis. No clubbing. No peripheral edema. LOWER EXTREMITIES: 2+ pulses, warm, well-perfused. No calf tenderness. No peripheral edema. Laboratory Results - last 24 hr 12/21/18 12/21/18 12/21/18 06:30 06:30 06:30 WBC 8.7 RBC 3.56 L Hgb 11.0 Hct 32.8 MCV 92.2 MCH 31.0 MCHC 33.6 RDW 13.5 Plt Count 281 MPV 8.4 Absolute Neuts (auto) 4.9 Neutrophils % 56.8 D Lymphocytes % 29.8 D Monocytes % 11.5 H Eosinophils % 1.4 D Basophils % 0.5 Nucleated RBC % 0 PT with INR 12.10 INR 1.03 Sodium 142 Potassium 4.0 Chloride 114 H Carbon Dioxide 21 Anion Gap 7 L BUN 7.2 Creatinine 0.6 Est GFR (CKD-EPI)AfAm 130.30 Est GFR (CKD-EPI)NonAf 112.42 Random Glucose 95 Calcium 8.3 L Phosphorus 2.7 Magnesium 1.9 Active Medications Generic Name Dose Route Start Last Admin Trade Name Freq PRN Reason Stop Dose Admin Acetaminophen 1,000 mg 12/20/18 11:04 12/21/18 10:07 Ofirmev Injection - IVPB 1,000 mg Q8H PRN Administration PAIN LEVEL 1-5 Ceftriaxone Sodium 1 gm/ 50 mls @ 200 mls/hr 12/20/18 10:00 12/21/18 10:06 Dextrose IVPB 200 mls/hr DAILY DANIELLE Administration Protocol Dextrose/Sodium Chloride 1,000 mls @ 125 mls/hr 12/20/18 11:00 12/21/18 13:26 D5-Ns - IV Not Given ASDIR [facility] Ketorolac Tromethamine 30 mg 12/20/18 11:04 12/21/18 07:11 Toradol Injection - IVPUSH 12/25/18 11:03 30 mg Q6H PRN Administration PAIN LEVEL 6-10 Morphine Sulfate 2 mg 12/20/18 04:33 12/21/18 06:44 Morphine Sulfate IVPUSH 2 mg Q4H PRN Administration PAIN LEVEL 4 - 6 Nicotine 7 mg 12/20/18 11:15 12/21/18 09:57 Nicoderm Patch - TD Not Given DAILY [facility] Ondansetron HCl 4 mg 12/20/18 04:42 Zofran Injection IVPUSH Q4H PRN NAUSEA AND/OR VOMITING Tamsulosin HCl 0.8 mg 12/20/18 11:00 12/21/18 09:57 Flomax - PO Not Given 0830 [facility] ASSESSMENT/PLAN: 43 y/o F with PMH of kidney stones 5 years ago presented to ED because of R sided flank pain since morning admitted for poss infected kidney stone R Flank pain most likely secondary to kidney stones as pt has prior history and based on current presentation Pt went for uro procedure at 4.16 continuing Ceftriaxone as per ID and Uro. Blood cultures negx24 Urine culture positive for lactose fermenting neg bacilli pending sensitivity flomax increased to 0.8 mg PO daily Morphine 2 mg IVPUSH Q4h for pain control tylenol and toradol (4d) added zofran 4mg for nausea Nicotine addiction Nicotine patch DVT PPX SCDs Visit type - Emergency Visit Emergency Visit: Yes ED Registration Date: 12/20/18 Care time: The patient presented to the Emergency Department on the above date and was hospitalized for further evaluation of their emergent condition. - New Patient This patient is new to me today: No - Critical Care Critical Care patient: No - Discharge Referral Referred to [facility] Med P.C[facility] No ATTENDING PHYSICIAN STATEMENT I saw and evaluated the patient. I reviewed the resident's note and discussed the case with the resident. I agree with the resident's findings and plan as documented. SUBJECTIVE: OBJECTIVE: ASSESSMENT AND PLAN:
[2018-12-21] MEDS ORDERED: GENTAMICIN SO4 80 MG/2 ML VIAL ONE (17:48)
[2018-12-21] MEDS ORDERED: GENTAMICIN 80MG PREMIX BAG IVPB ONE (17:50)
--- NOTE | 2018-12-21 18:37 | CON.GU ---
Consult Consult Specialty:: urology Reason for Consultation:: uti/right ureteral stone - History of Present Illness Chief Complaint: uti/right ureteral ston History of Present Illness: Pt. with history of right renal colic with severe urgency and frequency with nause and chills. Patient with documented uti with obstructing right ureteral stone. Discussed risks and benefits of stone retrieval vs stent to avoid urosepsis. Patient with leukocytosis with low grade fever vss/afeb abd-right CVAT ct scan reviewed discussed with patient x 25 minutes - Past Medical History ...: No - Alcohol/Substance Use Hx Alcohol Use: No - Smoking History Smoking history: Unknown if ever smoked Have you smoked in the past 12 months: No Aproximately how many cigarettes per day: 6 Home Medications - Allergies Allergies/Adverse Reactions: Allergies Allergy/AdvReac Type Severity Reaction Status Date / Time iodine Allergy Verified 12/20/18 10:47 pineapple Allergy Verified 12/20/18 10:47 shellfish derived Allergy Verified 12/20/18 10:47 - Home Medications Home Medications: Ambulatory Orders Diphenhydramine HCl [Benadryl -] 25 mg PO HS PRN 12/20/18 Physical Exam- Vital Signs: Vital Signs Temperature 99.3 F 12/21/18 14:57 Pulse Rate 87 12/21/18 14:57 Respiratory Rate 18 12/21/18 14:57 Blood Pressure 151/89 12/21/18 14:57 O2 Sat by Pulse Oximetry (%) 98 12/21/18 09:00 Constitutional: Yes: Anxious, Moderate Distress Eyes: Yes: WNL, Conjunctiva Clear, EOM Intact HENT: Yes: WNL, Atraumatic, Normocephalic Neck: Yes: WNL, Supple, Trachea Midline Cardiovascular: Yes: WNL Respiratory: Yes: WNL Gastrointestinal: Yes: WNL, Soft, Hypoactive Bowel Sounds Renal/: Yes: CVA Tenderness - Right Kidneys: Yes: FLank Pain Right Pelvis: Yes: WNL, Bladder Non Palpable External Genitalia: Yes: WNL Labs: CBC, BMP 12/21/18 06:30 12/21/18 06:30 Imaging - Results Cat Scan: Report Reviewed Assessment/Plan imp uti obstructing ureteral stone on right leukocytosis discussed x 25 minutes plan for emergent stent placement due to risk of renal injury and urosepsis
--- NOTE | 2018-12-21 18:42 | OP ---
Operative Note - Note: Operative Date: 12/21/18 Pre-Operative Diagnosis: right ureteral stone/uti Operation: cystoscopy/right retrograde pyelogram/right ureteroscopic stone basketing/right ureteral stent placement Findings: 4mm obstructing right ureteral stone Post-Operative Diagnosis: Same as Pre-op Surgeon: Zeferino Masterson Anesthesia: General Specimens Removed: ureteral stone Drains & Tubes with Location: 09/21 right ureteral stent
[2018-12-21] MEDS ORDERED: ACETAMINOPHEN INJECTION 100 ML IVPB ONE (18:50)
[2018-12-21] MEDS ORDERED: ACETAMINOPHEN 1000 MG/100 ML VIAL (NON FORMULARY) IVPB ONE (19:40)
[2018-12-21] MEDS ORDERED: ONDANSETRON 4 MG/2 ML VIAL IVPUSH PRN (19:40)
[2018-12-21] MEDS ORDERED: LACTATED RINGERS SOLUTION 1,000 ML IV SCH (19:45)
[2018-12-21] MEDS ORDERED: NICOTINE 7 MG/24 HOURS TOPICAL PATCH TD ONE (20:45)
[2018-12-22] MEDS ORDERED: MORPHINE SULFATE 2 MG/ML VIAL IM ONE (02:50)
[2018-12-22] MEDS: DEXTROSE 5%-NORMAL SALINE 1,000 ML IV SCH ×4 (03:17→21:18)
--- NOTE | 2018-12-22 08:53 | PN ---
Progress Note, Physician Chief Complaint: sitting at beside, c/o right flank pain ,s/p stent placement History of Present Illness: 43 y/o F with PMH of kidney stones 5 years ago presented to ED because of R sided flank pain since morning. Pt described the pain as sharp, constant radiating to suprapubic region. Pt says that nothing makes the pain better or worse. Pain is associated with nausea and CVA tenderness but no vomiting and also with difficulty urinating (dribbles) but no fever, chills, dysuria, urgency.Pain is currently at 5-6/10 but was 8/10 on initial presentation.A friend gave the patient muscle relaxant which helped the pain temporarily.Pt does not know the type of stone she had 5 years ago but does recall that it didnt require any intervention at the time. - Current Medication List Current Medications: Active Medications Fentanyl (Sublimaze Injection -) 50 mcg IVPUSH [id number] PRN PRN Reason: PAIN-PACU ORDER X 4 DOSES ONLY Ceftriaxone Sodium 1 gm/ (Dextrose) 50 mls @ 100 mls/hr IVPB DAILY DANIELLE; Protocol Dextrose/Sodium Chloride (D5-Ns -) 1,000 mls @ 125 mls/hr IV ASDIR DANIELLE Last Admin: 12/22/18 03:17 Dose: 125 mls/hr Ketorolac Tromethamine (Toradol Injection -) 30 mg IVPUSH Q6H PRN PRN Reason: PAIN LEVEL 6-10 Stop: 12/25/18 11:03 Last Admin: 12/21/18 22:41 Dose: 30 mg Nicotine (Nicoderm Patch -) 7 mg TD DAILY DANIELLE Ondansetron HCl (Zofran Injection) 4 mg IVPUSH Q6H PRN PRN Reason: NAUSEA AND/OR VOMITING - Objective Vital Signs: Vital Signs Temperature 97.6 F 12/22/18 06:26 Pulse Rate 77 12/22/18 06:26 Respiratory Rate 18 12/22/18 06:26 Blood Pressure 134/82 12/22/18 06:26 O2 Sat by Pulse Oximetry (%) 98 12/21/18 22:39 Constitutional: Yes: Well Nourished, Mild Distress (from flank pain) Eyes: Yes: WNL, Conjunctiva Clear, EOM Intact HENT: Yes: WNL, Atraumatic, Normocephalic Neck: Yes: WNL, Supple, Trachea Midline Cardiovascular: Yes: WNL, Regular Rate and Rhythm Respiratory: Yes: WNL, Regular, CTA Bilaterally Gastrointestinal: Yes: WNL, Normal Bowel Sounds ...Rectal Exam: Yes: Deferred Genitourinary: Yes: CVA Tenderness - Right Breast(s): Yes: WNL Musculoskeletal: Yes: WNL Extremities: Yes: WNL Edema: No Peripheral Pulses: Left Radial: 2+, Right Radial: 2+, Left Doralis Pedis: 2+, Right Dorsalis Pedis: 2+, Left Femoral: 2+, Right Femoral: 2+ Integumentary: Yes: WNL Neurological: Yes: WNL, Alert, Oriented ...Motor Strength: WNL Psychiatric: Yes: WNL Labs: CBC, BMP 12/21/18 06:30 12/21/18 06:30 INR, PTT INR 1.03 (0.83-1.09) 12/21/18 06:30 Problem List - Problems (1) Right ureteral stone Assessment/Plan: cystoscopy/right retrograde pyelogram/right ureteroscopic stone basketing/right ureteral stent placement 4mm obstructing right ureteral stone noted as per Dr Cheng continue to monitor UOP residual pain, c/w toradol paying close attention to Cr Code(s): N20.1 - CALCULUS OF URETER (2) Nicotine addiction Assessment/Plan: c/w Nicotine patch Code(s): F17.200 - NICOTINE DEPENDENCE, UNSPECIFIED, UNCOMPLICATED (3) Prophylactic measure Assessment/Plan: FEN IVF regular diet monitor electrolytes and replete prn DVT ambulatory Dispo maintain as inpatient until flank pain resolves full code discharge planning Code(s): Z29.9 - ENCOUNTER FOR PROPHYLACTIC MEASURES, UNSPECIFIED (4) Right flank pain Assessment/Plan: c/w IVF c/w toradol afebrile, c/w abx Code(s): R10.9 - UNSPECIFIED ABDOMINAL PAIN (5) UTI due to Klebsiella species Assessment/Plan: urine cx with klebsiella pneomina c/w ceftraixone Code(s): N39.0 - URINARY TRACT INFECTION, SITE NOT SPECIFIED; B96.1 - KLEBSIELLA PNEUMONIAE THE CAUSE OF DISEASES CLASSD ELSR Visit type - Emergency Visit Emergency Visit: Yes ED Registration Date: 12/20/18 Care time: The patient presented to the Emergency Department on the above date and was hospitalized for further evaluation of their emergent condition. - New Patient This patient is new to me today: Yes Date on this admission: 12/22/18 - Critical Care Critical Care patient: No - Discharge Referral Referred to [facility] Med P.C.: No
[2018-12-22] MEDS: KETOROLAC TROMETHAMINE 30 MG/1 ML VIAL IVPUSH PRN ×2 (09:06→17:02)
--- NOTE | 2018-12-22 09:51 | PN ---
Progress Note (short form) - Note Progress Note: 43F POD#1 for cystoscopy under GA. No anesthetic complications. Continue management per primary team.
[2018-12-22] MEDS ORDERED: DEXTROSE 5%-WATER - 50 ML IVPB ONE (11:20)
[2018-12-22] MEDS ORDERED: cefTRIAXone SODIUM 1 GM VIAL ONE (11:20)
[2018-12-22] MEDS: NICOTINE 7 MG/24 HOURS TOPICAL PATCH TD SCH (11:22)
[2018-12-22] MEDS: CEFTRIAXONE 1 GM in DEXTROSE 5%-WATER - 50 ML IVPB SCH (11:22)
[2018-12-22 12:23] LABS: BASO % 0.5 % (0-2.0); EOS % 0.2 % (0-4.5); HEMATOCRIT 35.8 % (32.4-45.2); HEMOGLOBIN 11.9 GM/dL (10.7-15.3); LYMPH % 16.5 % (8-40); MCH 30.5 pg (25.7-33.7); MCHC 33.1 g/dl (32.0-36.0); MONO % 10.3 % (3.8-10.2); NEUT % 72.5 % (42.8-82.8); PLATELET COUNT 312 K/MM3 (134-434); RBC 3.89 M/mm3 (3.60-5.2); RDW 13.4 % (11.6-15.6); WHITE BLOOD COUNT 13.1 K/mm3 (4.0-10.0)
[2018-12-22 12:46] LABS: ALBUMIN 3.3 g/dl (3.4-5.0); BILIRUBIN,TOTAL 0.3 mg/dL (0.2-1); BLOOD UREA NITROGEN 4.4 mg/dL (7-18); CALCIUM 8.9 mg/dL (8.5-10.1); CREATININE 0.6 mg/dL (0.55-1.3); MAGNESIUM 1.6 mg/dL (1.8-2.4); POTASSIUM 3.9 mmol/L (3.5-5.1); TOT PROT 6.6 g/dl (6.4-8.2)
[2018-12-22] MEDS ORDERED: PT OWN MED DRAWER 7, Y5N ONE (17:01)
[2018-12-23] MEDS: KETOROLAC TROMETHAMINE 30 MG/1 ML VIAL IVPUSH PRN ×2 (01:23→09:05)
[2018-12-23] MEDS: DEXTROSE 5%-NORMAL SALINE 1,000 ML IV SCH (05:43)
[2018-12-23 08:15] LABS: BASO % 0.8 % (0-2.0); EOS % 1.4 % (0-4.5); HEMATOCRIT 33.5 % (32.4-45.2); HEMOGLOBIN 11.1 GM/dL (10.7-15.3); LYMPH % 26.4 % (8-40); MCH 30.3 pg (25.7-33.7); MCHC 33.3 g/dl (32.0-36.0); MEAN PLT VOLUME 8.3 fl (7.5-11.1); NEUT % 60.4 % (42.8-82.8); PLATELET COUNT 275 K/MM3 (134-434); RBC 3.68 M/mm3 (3.60-5.2); RDW 13.2 % (11.6-15.6); WHITE BLOOD COUNT 7.3 K/mm3 (4.0-10.0)
[2018-12-23 08:40] LABS: ALBUMIN 2.9 g/dl (3.4-5.0); BILIRUBIN,TOTAL 0.2 mg/dL (0.2-1); BLOOD UREA NITROGEN 4.8 mg/dL (7-18); CALCIUM 8.5 mg/dL (8.5-10.1); CREATININE 0.5 mg/dL (0.55-1.3); MAGNESIUM 1.6 mg/dL (1.8-2.4); POTASSIUM 3.5 mmol/L (3.5-5.1); TOT PROT 5.7 g/dl (6.4-8.2)
[2018-12-23] MEDS ORDERED: cefTRIAXone SODIUM 1 GM VIAL ONE (08:57)
[2018-12-23] MEDS ORDERED: DEXTROSE 5%-WATER - 50 ML IVPB ONE (08:57)
[2018-12-23] MEDS: CEFTRIAXONE 1 GM in DEXTROSE 5%-WATER - 50 ML IVPB SCH (09:05)
[2018-12-23] MEDS: NICOTINE 7 MG/24 HOURS TOPICAL PATCH TD SCH (09:05)
[2018-12-23] MEDS ORDERED: traMADol HCL 50 MG TABLET PO PRN (09:54)
--- NOTE | 2018-12-23 15:25 | PN ---
Progress Note, Physician Chief Complaint: flank better today,s/p stent placement History of Present Illness: 43 y/o F with PMH of kidney stones 5 years ago presented to ED because of R sided flank pain since morning. Pt described the pain as sharp, constant radiating to suprapubic region. Pt says that nothing makes the pain better or worse. Pain is associated with nausea and CVA tenderness but no vomiting and also with difficulty urinating (dribbles) but no fever, chills, dysuria, urgency.Pain is currently at 5-6/10 but was 8/10 on initial presentation.A friend gave the patient muscle relaxant which helped the pain temporarily.Pt does not know the type of stone she had 5 years ago but does recall that it didnt require any intervention at the time. - Current Medication List Current Medications: Active Medications Ceftriaxone Sodium 1 gm/ (Dextrose) 50 mls @ 100 mls/hr IVPB DAILY [facility]; Protocol Last Admin: 12/23/18 09:05 Dose: 100 mls/hr Dextrose/Sodium Chloride (D5-Ns -) 1,000 mls @ 125 mls/hr IV ASDIR [facility] Last Admin: 12/23/18 05:43 Dose: 125 mls/hr Ketorolac Tromethamine (Toradol Injection -) 30 mg IVPUSH Q6H PRN PRN Reason: PAIN LEVEL 6-10 Stop: 12/25/18 11:03 Last Admin: 12/23/18 09:05 Dose: 30 mg Nicotine (Nicoderm Patch -) 7 mg TD DAILY [facility] Last Admin: 12/23/18 09:05 Dose: 7 mg Ondansetron HCl (Zofran Injection) 4 mg IVPUSH Q6H PRN PRN Reason: NAUSEA AND/OR VOMITING Tramadol HCl (Ultram -) 100 mg PO Q8H PRN PRN Reason: PAIN LEVEL 6-10 - Objective Vital Signs: Vital Signs Temperature 99.3 F 12/23/18 14:54 Pulse Rate 91 H 12/23/18 14:54 Respiratory Rate 18 12/23/18 14:54 Blood Pressure 149/93 12/23/18 14:54 O2 Sat by Pulse Oximetry (%) 98 12/23/18 09:00 Additional Findings/Remarks: Constitutional: Yes: Well Nourished, Mild Distress (from flank pain) Eyes: Yes: WNL, Conjunctiva Clear, EOM Intact HENT: Yes: WNL, Atraumatic, Normocephalic Neck: Yes: WNL, Supple, Trachea Midline Cardiovascular: Yes: WNL, Regular Rate and Rhythm Respiratory: Yes: WNL, Regular, CTA Bilaterally Gastrointestinal: Yes: WNL, Normal Bowel Sounds ...Rectal Exam: Yes: Deferred Genitourinary: Yes: CVA Tenderness - Right Breast(s): Yes: WNL Musculoskeletal: Yes: WNL Extremities: Yes: WNL Edema: No Peripheral Pulses: Left Radial: 2+, Right Radial: 2+, Left Doralis Pedis: 2+, Right Dorsalis Pedis: 2+, Left Femoral: 2+, Right Femoral: 2+ Integumentary: Yes: WNL Neurological: Yes: WNL, Alert, Oriented ...Motor Strength: WNL Psychiatric: Yes: WN Labs: CBC, BMP 12/23/18 07:14 12/23/18 07:14 INR, PTT INR 1.03 (0.83-1.09) 12/21/18 06:30 Problem List - Problems (1) Right ureteral stone Assessment/Plan: cystoscopy/right retrograde pyelogram/right ureteroscopic stone basketing/right ureteral stent placement 4mm obstructing right ureteral stone noted as per Dr Cheng continue to monitor UOP residual pain, c/w toradol paying close attention to Cr Code(s): N20.1 - CALCULUS OF URETER (2) Nicotine addiction Assessment/Plan: c/w Nicotine patch Code(s): F17.200 - NICOTINE DEPENDENCE, UNSPECIFIED, UNCOMPLICATED (3) Prophylactic measure Assessment/Plan: FEN IVF regular diet monitor electrolytes and replete prn DVT ambulatory Dispo maintain as inpatient until flank pain resolves full code discharge planning Code(s): Z29.9 - ENCOUNTER FOR PROPHYLACTIC MEASURES, UNSPECIFIED (4) Right flank pain Assessment/Plan: c/w IVF stop toradol, tramadol for pain afebrile, c/w abx Code(s): R10.9 - UNSPECIFIED ABDOMINAL PAIN (5) UTI due to Klebsiella species Assessment/Plan: urine cx with klebsiella pneomina c/w ceftraixone x 1 more dose and dc home on abx PO Code(s): N39.0 - URINARY TRACT INFECTION, SITE NOT SPECIFIED; B96.1 - KLEBSIELLA PNEUMONIAE THE CAUSE OF DISEASES CLASSD ELSWHR Visit type - Emergency Visit Emergency Visit: Yes ED Registration Date: 12/20/18 Care time: The patient presented to the Emergency Department on the above date and was hospitalized for further evaluation of their emergent condition. - New Patient This patient is new to me today: No - Critical Care Critical Care patient: No - Discharge Referral Referred to [facility] No
--- NOTE | 2018-12-23 17:31 | PATH ---
Surgical Pathology Report Patient Name: TONYA MONTAÑO Med. Rec. #: [id number] /Age/Gender: 1975 (Age: 43) / F Account: [id number] Location: [facility] MED/SURG Taken: 12/21/2018 Received: 12/22/2018 Reported: 12/23/2018 Physicians: Zeferino Masterson Specimen(s) Received RIGHT URETERAL CALCULI Clinical History Right ureteral stone Final Diagnosis RIGHT URETERAL STONE, REMOVAL: CONSISTENT WITH URETERAL CALCULUS. SENT TO CHEMICAL ANALYSIS. Electronically Signed Galo Dubois M.D. Gross Description Received in a container labeled with "right ureteral stone", is a dark brown stone measuring 0.3 cm in greatest dimension. Sent to chemical analysis.
--- NOTE | 2018-12-24 08:20 | DS ---
Physical Exam: SUBJECTIVE: Patient seen and examined OBJECTIVE: Vital Signs Period Temp Pulse Resp BP Sys/Newberry Pulse Ox Last 24 Hr 97.6 F-99.5 F 76-91 18-20 114-151/73-93 98-98 PHYSICAL EXAM GENERAL: The patient is awake, alert, and fully oriented, in no acute distress. HEAD: Normal with no signs of trauma. EYES: PERRL, extraocular movements intact, sclera anicteric, conjunctiva clear. ENT: Ears normal, nares patent, oropharynx clear without exudates, moist mucous membranes. NECK: Trachea midline, full range of motion, supple. LUNGS: Breath sounds equal, clear to auscultation bilaterally, no wheezes, no crackles, no accessory muscle use. HEART: Regular rate and rhythm, S1, S2 without murmur, rub or gallop. ABDOMEN: Soft, nontender, nondistended, normoactive bowel sounds, no guarding, no rebound, no hepatosplenomegaly, no masses. EXTREMITIES: 2+ pulses, warm, well-perfused, no edema. NEUROLOGICAL: Cranial nerves II through XII grossly intact. Normal speech, gait not observed. PSYCH: Normal mood, normal affect. SKIN: Warm, dry, normal turgor, no rashes or lesions noted. LABS Laboratory Results - last 24 hr 12/23/18 12/23/18 07:14 07:14 WBC 7.3 RBC 3.68 Hgb 11.1 Hct 33.5 MCV 91.0 MCH 30.3 MCHC 33.3 RDW 13.2 Plt Count 275 MPV 8.3 Absolute Neuts (auto) 4.4 Neutrophils % 60.4 Lymphocytes % 26.4 D Monocytes % 11.0 H Eosinophils % 1.4 D Basophils % 0.8 Nucleated RBC % 0 Sodium 140 Potassium 3.5 Chloride 111 H Carbon Dioxide 22 Anion Gap 7 L BUN 4.8 L Creatinine 0.5 L Est GFR (CKD-EPI)AfAm 138.36 Est GFR (CKD-EPI)NonAf 119.38 Random Glucose 87 Calcium 8.5 Magnesium 1.6 L Total Bilirubin 0.2 AST 9 L ALT 12 L Alkaline Phosphatase 66 Total Protein 5.7 L Albumin 2.9 L HOSPITAL COURSE: Date of Admission:12/20/18 Date of Discharge: 12/24/18 Discharge Summary Reason For Visit: URINARY TRACT INFECTION Current Active Problems Nicotine addiction (Acute) Prophylactic measure (Acute) Right flank pain (Acute) Right ureteral stone (Acute) UTI due to Klebsiella species (Acute) Condition: Improved - Instructions Disposition: HOME - Home Medications Comprehensive Discharge Medication List: Ambulatory Orders Nicotine Patch [Nicoderm Patch -] 7 mg TD DAILY #14 patch 12/23/18 Sulfamethoxazole/Trimethoprim [Bactrim Ds -] 1 tab PO BID #14 tablet 12/23/18 traMADol HCL [Ultram -] 100 mg PO Q8H PRN #90 tablet MDD 3 12/23/18 Problem List - Problems (1) Right ureteral stone Code(s): N20.1 - CALCULUS OF URETER (2) Nicotine addiction Code(s): F17.200 - NICOTINE DEPENDENCE, UNSPECIFIED, UNCOMPLICATED (3) Prophylactic measure Code(s): Z29.9 - ENCOUNTER FOR PROPHYLACTIC MEASURES, UNSPECIFIED (4) Right flank pain Code(s): R10.9 - UNSPECIFIED ABDOMINAL PAIN (5) UTI due to Klebsiella species Code(s): N39.0 - URINARY TRACT INFECTION, SITE NOT SPECIFIED; B96.1 - KLEBSIELLA PNEUMONIAE THE CAUSE OF DISEASES CLASSD ELSWHR - Discharge Referral Referred to [facility] No
[2018-12-24] MEDS ORDERED: cefTRIAXone SODIUM 1 GM VIAL ONE (09:22)
[2018-12-24] MEDS ORDERED: DEXTROSE 5%-WATER - 50 ML IVPB ONE (09:22)
[2018-12-24] MEDS: NICOTINE 7 MG/24 HOURS TOPICAL PATCH TD SCH (09:44)
[2018-12-24] MEDS: CEFTRIAXONE 1 GM in DEXTROSE 5%-WATER - 50 ML IVPB SCH (09:45)
[2018-12-24 10:46] VITALS: BP 128/82; PULSE 83; TEMP 99
== END 2018-12-24 10:43 | disposition home or self-care (01) | DRG 661 ==
LOC: JER 23:09 → JERBED 12-20 05:08 → J7W 12-20 23:31
PROVIDERS: ADMIT Internal Medicine; ATTEND Nurse Practitioner Acute Care
PROC: 0WCR8ZZ Extirpation of Matter from Genitourinary Tract, Via Natural or Artificial Opening Endoscopic (ICD-10-PCS; principal; 2018-12-21 10:00)
PROC: 0T768DZ Dilation of Right Ureter with Intraluminal Device, Via Natural or Artificial Opening Endoscopic (ICD-10-PCS; 2018-12-21 10:00)
PROC: BT1DZZZ Fluoroscopy of Right Kidney, Ureter and Bladder (ICD-10-PCS; 2018-12-21 10:00)
DX: N13.6 Pyonephrosis (principal); N28.1 Cyst of kidney, acquired; F17.210 Nicotine dependence, cigarettes, uncomplicated; B96.1 Klebsiella pneumoniae [K. pneumoniae] as the cause of diseases classified elsewhere
CPT/HCPCS: 36415; 74176-TC; 76000-TC-FY; 80048; 80053; 81003; 82360; 83735; 84100; 84703; 85025; 85610; 86850; 86900; 86901; 87040; 87086; 87186; 88300-TC; 93005; 93010; 94760; 99285-25; J0131; J1644; J7030

== ENCOUNTER 2021-01-09 16:40 | Emergency (ER) | payer BC, OTHER ==
[2021-01-09] MEDS ORDERED: ACETAMINOPHEN 500 MG TABLET (FP) PO ONE (16:59)
[2021-01-09] MEDS ORDERED: ACETAMINOPHEN 500 MG TABLET (FP) ONE (17:06)
[2021-01-09 17:15] VITALS: BP 137/86; PULSE 80; TEMP 97.7; BMI 22.6
== END 2021-01-09 18:00 | disposition home or self-care (01) ==
LOC: FER 16:40
DX: M25.561 Pain in right knee (principal)
CPT/HCPCS: 73562-TC-RT-FY; 99284-25

== ENCOUNTER 2021-05-13 12:15 | Emergency (ER) | payer BC, OTHER ==
[2021-05-13 12:24] VITALS: BP 129/81; PULSE 89; TEMP 99; BMI 22.4
[2021-05-13] MEDS ORDERED: ACETAMINOPHEN 1000 MG/100 ML BAG IVPB ONE (12:26)
[2021-05-13] MEDS ORDERED: KETOROLAC TROMETHAMINE 30 MG/1 ML VIAL IVPUSH ONE (12:26)
[2021-05-13] MEDS ORDERED: SODIUM CHLORIDE 0.9% 1000 ML INFUS.BAG IV ONE (12:26)
[2021-05-13] MEDS ORDERED: ACETAMINOPHEN INJECTION 100 ML IVPB ONE (12:36)
[2021-05-13] MEDS ORDERED: KETOROLAC TROMETHAMINE 30 MG/1 ML VIAL ONE (12:49)
[2021-05-13 12:56] LABS: HCG,QUALITATIVE URINE Negative
[2021-05-13 13:24] LABS: EPITHELIAL CELLS FEW /hpf
[2021-05-13 13:31] LABS: ALBUMIN 3.7 g/dl (3.4-5.0); BILIRUBIN,TOTAL 0.5 mg/dl (0.2-1); CALCIUM 8.9 mg/dl (8.5-10); CREATININE 0.7 mg/dl (0.55-1.3); TOT PROT 6.5 g/dl (6.4-8.2)
[2021-05-13 14:13] LABS: BASO % 0.7 % (0-2.0); EOS % 1.6 % (0-4.5); HEMATOCRIT 37.3 % (32.4-45.2); HEMOGLOBIN 12.2 GM/dL (10.7-15.3); LYMPH % 21.3 % (8-40); MCH 29.9 pg (25.7-33.7); MCHC 32.6 g/dl (32.0-36.0); MEAN CELL VOLUME 91.7 fl (80-96); MONO % 9.8 % (3.8-10.2); NEUT % 66.6 % (42.8-82.8); PLATELET COUNT 330 10^3/uL (134-434); RBC 4.07 M/mm3 (3.60-5.2); RDW 13.5 % (11.6-15.6); WHITE BLOOD COUNT 6.2 K/mm3 (4.0-10.0)
== END 2021-05-13 14:45 | disposition home or self-care (01) ==
LOC: FER 12:15
PROC: 3E033GC Introduction of Other Therapeutic Substance into Peripheral Vein, Percutaneous Approach (ICD-10-PCS; principal; 2021-05-13)
DX: N20.1 Calculus of ureter (principal)
CPT/HCPCS: 36415; 74176-TC; 80053; 81003; 81015; 84703; 85025; 87086; 99285-25